=== PATIENT | male | born 1970 | race Caucasian/White ===

== ENCOUNTER 2017-01-14 16:33 | Emergency (ER) | payer OTHER ==
[2017-01-14 16:53] VITALS: BP 129/84; PULSE 97; TEMP 98.6; BMI 26.5
--- NOTE | 2017-01-14 17:53 | PDOC ---
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 Pt denies fall neg numbness or tingling. Pt is ambulatory with slight limp. Severity: Yes: mild Lower Extremity Pain Location: right: knee Method of Injury: Yes: twisted Lower Ext. Injury Location - Specific Injury Location Knees: right pain Past History - Past Medical History Allergies/Adverse Reactions: Allergies Allergy/AdvReac Type Severity Reaction Status Date / Time No Known Allergies Allergy Verified 01/14/17 16:49 Home Medications: Ambulatory Orders Pantoprazole Sodium [Protonix -] 40 mg PO DAILY 01/14/17 GI Disorders: Yes (GERD) - Suicide/Smoking/Psychosocial Hx Smoking History: Never smoked Review of Systems - Review of Systems Able to Perform ROS?: Yes Is the patient limited [place] proficient: No Constitutional: No: Symptoms Reported HEENTM: No: Symptoms Reported Respiratory: No: Symptoms reported Cardiac (ROS): No: Symptoms Reported ABD/GI: No: Symptoms Reported : No: Symptoms Reported Musculoskeletal: Yes: See HPI *Physical Exam - Vital Signs Last Vital Signs Temp Pulse Resp BP Pulse Ox 98.6 F 97 H 19 129/84 95 01/14/17 16:49 01/14/17 16:49 01/14/17 16:49 01/14/17 16:49 01/14/17 16:49 - Physical Exam General Appearance: Yes: Nourished, Appropriately Dressed HEENT: positive: EOMI, OLI Musculoskeletal: positive: Normal Inspection Extremity: positive: Normal Capillary Refill, Tender (lateral knee , no deformity or swelling nv intact FROM of the knee without crepitus ) Integumentary: positive: Normal Color, Dry, Warm Neurologic: positive: Fully Oriented, Alert, Normal Mood/Affect, Normal Response , Motor Strength 5/5 Procedures - Splinting Bill Bandage: yes, 4" ED Treatment Course - RADIOLOGY Radiology Studies Ordered: Category Date Time Status KNEE 3 POS-RIGHT [RAD] Stat Radiology 01/14/17 17:25 Taken Medical Decision Making - Medical Decision Making 01/14/17 17:47 cc:right knee pain after twisting knee wednesday morning at 1am, pt was running and felt his knee give out and twist, did not fall pt has continued pain taking advil with relief nv intact 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 I have given dc inst to the pt and he understands the improtance of follow up *DC/Admit/Observation/Transfer Diagnosis at time of Disposition: Strain of knee Qualifiers: Encounter type: initial encounter Laterality: right Qualified Code(s): S86.911A - Strain of unspecified muscle(s) and tendon(s) at lower leg level, right leg, initial encounter; S86.911A - Strain of unspecified muscle(s) and tendon(s) at lower leg level, right leg, initial encounter - Discharge Dispostion Disposition: HOME Condition at time of disposition: Good - Referrals Referrals: Kar Conn Jr., MD [Primary Care Provider] - Josesito Abraham MD [Staff Physician] - - Patient Instructions Additional Instructions: elevate and apply warm compresses every 3hrs for 20 minutes take advil for pain use the bill wrap while awake remove to sleep follow with the orthopedist for further evaluation call tomorrow to make appointment
== END 2017-01-14 17:53 | disposition home or self-care (01) ==
LOC: JERFT 16:33
DX: S86.811A Strain of other muscle(s) and tendon(s) at lower leg level, right leg, initial encounter (principal); Y35.891A Legal intervention involving other specified means, law enforcement official injured, initial encounter; X50.1XXA Overexertion from prolonged static or awkward postures, initial encounter; Y93.02 Activity, running; Y92.89 Other specified places as the place of occurrence of the external cause; Y99.0 Civilian activity done for income or pay
CPT/HCPCS: 73562-TC-RT; 99281-25